=== PATIENT | male | born 1965 | race Caucasian/White ===

== ENCOUNTER → 2021-07-14 04:04 | Outpatient (CLI) | payer BC, SELFPAY ==
[2021-07-14 16:54] LABS: SARS-CoV-2 RNA PCR Negative
== END ==
PROVIDERS: Visit Provider Internal Medicine Gastroenterology
DX: Z01.812 Encounter for preprocedural laboratory examination (principal); Z20.822 Contact with and (suspected) exposure to COVID-19
CPT/HCPCS: C9803; U0003; U0005

== ENCOUNTER 2021-07-17 02:33 | Day surgery (SDC) | payer BC, SELFPAY ==
[2021-07-03 13:52] VITALS: BMI 25.9
--- NOTE | 2021-07-16 16:26 | PM.HPGS ---
History of Present Illness History of Present Illness Consent: Risks, benefits, and alternatives have been discussed and questions answered. Patient agrees to proceed with procedure. Chief complaint: neoplasm screening Narrative: Harshil Ryan is a 55 year old male referred for colon cancer screening. This is his 1st colonoscopy. His father from colon cancer Review of Systems Review of Systems: All systems reviewed & are unremarkable except as noted in HPI and below PMFSH Surgical History Surgical History Hx of tonsillectomy Social History Social History Smoking status: Never smoker Alcohol intake: former Substance use: current Substance use type: marijuana Other substance usage details: weekly Living arrangements: with family Spiritual care concerns: No Meds Home Medications and Allergies Home Medications Medication Instructions Recorded Confirmed Type No Home Medications 07/03/21 07/17/21 History Allergies Allergy/AdvReac Type Severity Reaction Status Date / Time Penicillins AdvReac Drowsy Verified 07/17/21 09:01 Exam Resp: Auscultation: clear to auscultation bilaterally Cardio: Rate: regular rate Rhythm: regular rhythm GI: GI Palp: Yes Soft to palpation and No Tenderness to palpation present (GI) Assessment and Plan Assessment and plan (1) Colon cancer screening: Code(s): Z12.11 - Encounter for screening for malignant neoplasm of colon Status: Acute Assessment and Plan: Colonoscopy with possible biopsy or polypectomy or cautery or injection of substances.
[2021-07-17 09:02] VITALS: BP 135/91; PULSE 79; RESP 20; TEMP 36.7; O2SAT 99; BMI 24.4
[2021-07-17] MEDS: LACTATED RINGERS 1,000 ML 150 ML IV CONT (09:04)
--- NOTE | 2021-07-17 09:24 | WPDANESEPPF ---
Anes - Initial Pre Proc Eval Procedure: Operation Date: 07/17/21 10:30 Proposed Procedures p Screening Colonoscopy - Alan Ingram MD Date/Time: 07/17/21 09:24 Surgeon: Alan Ingram MD Pre Op Diagnosis: neoplasm screening Patient Data Age: 55 Gender: M Height: 1.7 m Weight: 70.8 kg Last Vital Signs Temp 36.7 C 07/17/21 09:02 Pulse 79 07/17/21 09:02 Resp 20 07/17/21 09:02 BP 135/91 H 07/17/21 09:02 Pulse Ox 99 07/17/21 09:02 Allergies Allergy/AdvReac Type Severity Reaction Status Date / Time Penicillins AdvReac Drowsy Verified 07/17/21 09:01 Home Medications Medication Instructions Recorded Confirmed Type No Home Medications 07/03/21 07/17/21 History Patient hx anesthesia problems: none Family hx anesthesia problems: none Results Review: All pre-operative results and documents have been reviewed as part of the pre-operative evaluation. [facility] Surgical History Surgical History (Updated 07/17/21 @ 09:24 by Santiago Alatorre MD) Hx of tonsillectomy Social History Social History Smoking status: Never smoker Alcohol intake: former Substance use: current Substance use type: marijuana Other substance usage details: weekly Living arrangements: with family Spiritual care concerns: No Anes - Eval Final PreProcedure Day of Procedure 07/17/21 09:24 Patient weight: normal Heart: regular rate and rhythm Lungs: clear to auscultation Airway: Mallampati scale class II Neurological: alert and oriented Last oral intake: >/= 8 hours ASA classification: I Emergent: no Anesthetic plan: proceed Anesthesia type and monitoring: general GIVS and standard monitoring Results Review: All pre-operative results and documents have been reviewed as part of the pre-operative evaluation. Informed Consent: The patient's anesthetic plan and its attendant risks and benefits were discussed with the patient/family/POA. Questions were solicited and answers provided to the satisfaction of the patient/family/POA.
[2021-07-17 11:22] VITALS: BP 107/72; PULSE 90; RESP 20; O2SAT 95
[2021-07-17 11:32] VITALS: BP 112/75; PULSE 85; RESP 20; O2SAT 97
[2021-07-17 11:42] VITALS: BP 130/91; PULSE 64; RESP 20; O2SAT 99
== END 2021-07-17 12:30 | disposition home or self-care (01) ==
PROVIDERS: Visit Provider Internal Medicine Gastroenterology
PROC: 0DJD8ZZ Inspection of Lower Intestinal Tract, Via Natural or Artificial Opening Endoscopic (ICD-10-PCS; CPT 45378; principal; 2021-07-17 10:30)
DX: Z12.11 Encounter for screening for malignant neoplasm of colon (principal); Z80.0 Family history of malignant neoplasm of digestive organs; K57.30 Diverticulosis of large intestine without perforation or abscess without bleeding; D12.4 Benign neoplasm of descending colon; F12.90 Cannabis use, unspecified, uncomplicated
CPT/HCPCS: 45385; 88305; J2704; J7120